=== PATIENT | male | born 1965 | race Caucasian/White ===

== ENCOUNTER 2023-02-05 09:00 | Outpatient (AMB) | payer OTHER, SELFPAY ==
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
[2023-02-05 09:08] VITALS: BP 110/80; PULSE 117; O2SAT 96; BMI 20.9
== END 2023-02-05 10:09 | disposition home or self-care (01) ==
LOC: HO.HMGH 09:00
PROVIDERS: PCP Internal Medicine; Visit Provider Internal Medicine
DX: Z00.00 Encounter for general adult medical examination without abnormal findings (principal); J44.9 Chronic obstructive pulmonary disease, unspecified; F41.9 Anxiety disorder, unspecified; R63.4 Abnormal weight loss; R63.0 Anorexia; R10.13 Epigastric pain; M25.50 Pain in unspecified joint; G89.29 Other chronic pain; F10.10 Alcohol abuse, uncomplicated; G47.00 Insomnia, unspecified; F32.89 Other specified depressive episodes; Z12.11 Encounter for screening for malignant neoplasm of colon
CPT/HCPCS: 99396

== ENCOUNTER 2023-02-05 10:15 | Outpatient (REF) | payer OTHER, SELFPAY ==
--- NOTE | ~2023-02-05 | XR_ITS ---
EXAMINATION: XR HIP, RIGHT XR HIP, LEFT XR KNEE, RIGHT XR TIBIA/FIBULA, RIGHT XR ELBOW, LEFT XR ELBOW, RIGHT XR WRIST, LEFT XR WRIST, RIGHT CLINICAL INFORMATION: Pain. History of tibial tendon repair right leg in 1997. COMPARISON: 07/19/2019 right lower leg, right hip 04/30/2019, left hip 03/19/2017, right knee of 01/28/2012. TECHNIQUE: 2 views of each hip. 4 view right knee. AP and lateral right tibia and fibula. 3 view each elbow, and 3 views of each wrist. FINDINGS: LEFT HIP: 2 views of the left hip do not demonstrate any evidence of acute fracture or dislocation. Joint spaces are maintained. There is some mild collar spurring present. No abnormal lytic or sclerotic lesions are seen involving the femoral head. RIGHT HIP: 2 views of the right hip do not demonstrate any evidence of acute fracture or dislocation. Right hip joint spaces are maintained. Mild spurring is seen as well as calcification of the labrum. No abnormal lytic or sclerotic lesion about the femoral head. RIGHT KNEE: There is no evidence of acute fracture or dislocation of the right knee. Right knee joint spaces are maintained. Bony density about the medial femoral condyle is present consistent with previous medial collateral ligament injury. No knee effusion is appreciated. RIGHT TIBIA AND FIBULA: There is no evidence of acute fracture or dislocation of the right tibia or fibula. No destructive bony lesions identified. There is again noted to be a juxtacortical sclerotic bony density about the anterior distal aspect of the tibia with some overlying soft tissue prominence which has been seen dating back to study of 03/12/2011. This has the appearance of possible osteochondroma. This could also be related to posttraumatic calcification. There is again noted be a stable sclerotic lesion seen involving the calcaneus. LEFT ELBOW: There is no evidence of acute fracture or dislocation of the left elbow. No left elbow effusion is appreciated. There is bony density seen about the coronoid process which is likely degenerative in nature. Joint spaces are maintained. Small linear calcification about the dorsal aspect of the olecranon which could possibly represent calcification adjacent to the triceps tendon. There is a squared-off density with linear margins overlying the lateral epicondyle but which likely represent artifact from overlying external material rather than related to calcific epicondylitis. LEFT WRIST: There is no evidence of acute fracture or dislocation of the left wrist. Left wrist joint spaces are maintained. Mild degenerative change about the 1st carpometacarpal joint is present. No destructive bony lesions. RIGHT ELBOW: There is no evidence of acute fracture or dislocation of the right elbow. Joint spaces are maintained. There are some calcifications about the dorsal aspect of the olecranon within the soft tissues. No elbow effusion is seen. RIGHT WRIST: There is no evidence of acute fracture or dislocation of the right wrist. Right wrist joint spaces are maintained. There is minor spurring seen about the ulnar styloid. Deformity from previous healed fracture seen involving the 4th and 5th metacarpals. XR/XR tibia fibula RT 2V IMPRESSION: No significant abnormality of the right or left hip. No significant right knee abnormality appreciated. Evidence for old medial collateral ligament injury. Stable sclerotic juxtacortical lesion about the distal right tibia with the appearance of an osteochondroma. No significant bony abnormalities of the wrists or right elbow.
[2023-02-05 11:11] LABS: Basophils Percent Auto 0.6 % (0-2); Eosinophils Percent Auto 0.6 % (0-4); Hematocrit 41.7 % (42.0-52.0); Hemoglobin 14.4 g/dl (14.0-18.0); Imm Gran Abs Auto 0.01 X10*3/uL (0.00-0.03); Imm Gran Pct Auto 0.2 % (0.0-0.4); Lymphocytes Percent Auto 21.4 % (20-40); MANUAL DIFF FLAG SCAN; Mean Corpuscular HGB Conc 34.5 g/dl (31.0-36.0); Mean Corpuscular Hemoglobin 32.5 pg (27.0-33.0); Mean Corpuscular Volume 94.1 fL (80.0-98.0); Monocytes Absolute Auto 0.6 X10*3/uL (0.1-1.2); Monocytes Percent Auto 13.4 % (2-11); Neutrophils Percent Auto 63.8 % (45-73); PLT CLUMP 1; Red Blood Count 4.43 X10*6/uL (4.60-5.80); SCAN SMEAR FLAG 1
[2023-02-05 11:13] LABS: White Blood Count 4.8 X10*3/uL (4.8-10.8)
[2023-02-05 11:21] LABS: Appearance Urine Cloudy; Color Urine Dark Yellow; Glucose Urine UA Negative (Negative); Leukocyte Esterase Urine Small (1+) (Negative); Nitrite Urine Positive (Negative); Specific Gravity - Urine >= 1.030 (1.005-1.025); UMIC TRIGGER UACC YES; Urine Blood Negative (Negative); Urine Ketones 15 mg/dL (Negative); Urine Protein 100 (2+) mg/dL (Neg-Trace)
[2023-02-05 11:35] LABS: Bacteria Urine None Seen (None Seen); RBC Urine 0-2 /HPF (0-2); UACC Culture Trigger YES; WBC Urine 0-5 /HPF (0-5)
[2023-02-05 11:49] LABS: Erythrocyte Sedimentation Rate 6 MM/HR (0-15)
[2023-02-05 11:53] LABS: Platelet Count 126 X10*3/uL (160-400)
[2023-02-05 11:54] LABS: SLIDE REVIEW VERIFIED
[2023-02-05 12:50] LABS: Alanine Aminotransferase 35 U/L (0-40); Albumin Level 4.5 g/dL (3.5-5.0); Alkaline Phosphatase 93 U/L (39-117); Anion Gap 18 (12-20); Aspartate Amino Transferase 63 U/L (5-37); Bilirubin Total 1.3 mg/dL (0.0-1.0); Blood Urea Nitrogen 6 mg/dL (9-16); C Reactive Protein 0.44 mg/dL (< or = 0.50); Calcium 9.8 mg/dL (8.4-10.2); Carbon Dioxide 23 mmol/L (22-29); Chloride 100 mmol/L (96-108); Cholesterol 163 mg/dL; Estimated Glomerular Filt Rate > 60; Glucose Fasting 93 mg/dL (60-99); HDL Cholesterol 90 mg/dL; LDL Cholesterol Calculated 61 mg/dl; Lipase 26 U/L (8-78); Sodium 137 mmol/L (135-145); Total Protein 7.8 g/dL (6.5-8.0); Triglycerides 62 mg/dL
[2023-02-05 13:06] LABS: Rheumatoid Factor < 13.0 IU/mL (<15.0)
[2023-02-05 13:22] LABS: Folate 15.5 ng/mL (> or = 4.0); Vitamin B12 292 pg/mL (200-900); Vitamin D 25-OH Total 9.9 ng/mL (>30)
[2023-02-08 07:34] LABS: Lyme Abs Screen <0.90 index
[2023-02-12 13:28] LABS: Anti Nuclear Antibody Screen POSITIVE (NEGATIVE); Anti Nuclear Antibody Titer 1:40 titer
== END 2023-02-05 10:16 | disposition home or self-care (01) ==
LOC: HO.LAB 10:15
PROVIDERS: PCP Internal Medicine; Visit Provider Internal Medicine
DX: Z00.00 Encounter for general adult medical examination without abnormal findings (principal); Z12.5 Encounter for screening for malignant neoplasm of prostate; R10.13 Epigastric pain; E78.00 Pure hypercholesterolemia, unspecified; J44.9 Chronic obstructive pulmonary disease, unspecified; K21.9 Gastro-esophageal reflux disease without esophagitis; R42 Dizziness and giddiness; R63.0 Anorexia; R63.4 Abnormal weight loss; M25.50 Pain in unspecified joint; E53.8 Deficiency of other specified B group vitamins; E55.9 Vitamin D deficiency, unspecified; G89.29 Other chronic pain
CPT/HCPCS: 36415; 73080; 73110; 73502; 73564; 73590; 80053; 80061; 81001; 82306; 82607; 82746; 83690; 84153; 84443; 85025; 85652; 86038; 86039; 86140; 86431; 86617; 86618; 87086

== ENCOUNTER 2023-05-20 13:15 | Outpatient (AMB) | payer OTHER, SELFPAY ==
--- NOTE | 2023-05-20 13:19 | AM.OFFVISNUR ---
Intake Intake Visit Reasons: PPD Allergies aspirin [ASPIRIN] Allergy (Unknown, Verified 05/20/23 06:07) HIVES levofloxacin [Levaquin] Allergy (Unknown, Verified 05/20/23 06:07) Unknown naproxen Allergy (Unknown, Verified 05/20/23 06:07) Unknown penicillin V Allergy (Unknown, Verified 05/20/23 06:07) Unknown Penicillins [PENICILLINS] Allergy (Unknown, Verified 05/20/23 06:07) HIVES strawberry [STRAWBERRY] Allergy (Unknown, Verified 05/20/23 06:07) SHORTNESS OF BREATH CHOCOLATE Allergy (Unknown, Uncoded 05/20/23 06:07) SHORTNESS OF BREATH From ALEVE Allergy (Unknown, Uncoded 05/20/23 06:07) HIVES From NOVOCAIN Allergy (Unknown, Uncoded 05/20/23 06:07) SWELLING novacaine Allergy (Unknown, Uncoded 05/20/23 06:07) Unknown Office Meds tuberculin PPD Performing Provider: Manjeet Espana MD Administered by: Brittnee Rosen RN on 05/20/23 13:28 Dose Route Admin Location Lot Number Expiration Date NDC House Steward/Stewardess 0.1 mL intradermal left forearm [id number] 07/22/26 43577-354-70 [employer] Coding Diagnoses Assessment & Plan Assessment & Plan Orders: Orders AMB PPD Planted Today Z11.1 - Encounter for screening for respiratory tuberculosis
== END 2023-05-20 13:29 | disposition home or self-care (01) ==
PROVIDERS: PCP Internal Medicine; Visit Provider Internal Medicine
DX: Z11.1 Encounter for screening for respiratory tuberculosis (principal)
CPT/HCPCS: 86580

== ENCOUNTER 2023-06-02 09:46 | Outpatient (AMB) | payer OTHER, SELFPAY ==
--- NOTE | 2023-06-02 09:47 | AM.OFFVISNUR ---
Intake Intake Visit Reasons: TB implant Allergies aspirin [ASPIRIN] Allergy (Unknown, Verified 05/20/23 06:07) HIVES levofloxacin [Levaquin] Allergy (Unknown, Verified 05/20/23 06:07) Unknown naproxen Allergy (Unknown, Verified 05/20/23 06:07) Unknown penicillin V Allergy (Unknown, Verified 05/20/23 06:07) Unknown Penicillins [PENICILLINS] Allergy (Unknown, Verified 05/20/23 06:07) HIVES strawberry [STRAWBERRY] Allergy (Unknown, Verified 05/20/23 06:07) SHORTNESS OF BREATH CHOCOLATE Allergy (Unknown, Uncoded 05/20/23 06:07) SHORTNESS OF BREATH From ALEVE Allergy (Unknown, Uncoded 05/20/23 06:07) HIVES From NOVOCAIN Allergy (Unknown, Uncoded 05/20/23 06:07) SWELLING novacaine Allergy (Unknown, Uncoded 05/20/23 06:07) Unknown Office Meds tuberculin PPD 5 tub. unit/0.1 mL intradermal injection solution Performing Provider: Manjeet Espana MD [facility] [place] [facility] Administered by: Sonja Moreno RN on 06/02/23 09:55 Dose Route Admin Location Dispensed Lot Number Expiration Date NDC Doll Repairer 0.1 mL intradermal 0.1 mL [id number] 07/21/26 03702-737-78 [employer] Coding Assessment & Plan Assessment & Plan Orders: Orders AMB PPD Planted Today Z11.1 - Encounter for screening for respiratory tuberculosis
== END 2023-06-02 09:55 | disposition home or self-care (01) ==
PROVIDERS: PCP Internal Medicine; Visit Provider Internal Medicine
DX: Z11.1 Encounter for screening for respiratory tuberculosis (principal)
CPT/HCPCS: 86580

== ENCOUNTER 2024-06-13 19:55 | Emergency (ER) | payer OTHER, SELFPAY ==
[2024-06-13 20:02] VITALS: BP 138/88; PULSE 72; O2SAT 99
[2024-06-13 20:05] VITALS: BP 102/69; PULSE 90; RESP 16; TEMP 37; O2SAT 100; BMI 20.6
[2024-06-13 20:29] LABS: Basophils Percent Auto 0.7 % (0-2); Eosinophils Absolute Auto 0.1 X10*3/uL (0.0-0.4); Eosinophils Percent Auto 1.2 % (0-4); Hematocrit 39.3 % (42.0-52.0); Hemoglobin 13.6 g/dl (14.0-18.0); Imm Gran Abs Auto 0.02 X10*3/uL (0.00-0.03); Imm Gran Pct Auto 0.4 % (0.0-0.4); Lymphocytes Absolute Auto 2.5 X10*3/uL (1.2-4.9); Lymphocytes Percent Auto 45.3 % (20-40); MANUAL DIFF FLAG NO; Mean Corpuscular HGB Conc 34.6 g/dl (31.0-36.0); Mean Corpuscular Hemoglobin 33.7 pg (27.0-33.0); Mean Corpuscular Volume 97.3 fL (80.0-98.0); Mean Platelet Volume 8.6 fL (9.4-12.4); Monocytes Absolute Auto 0.7 X10*3/uL (0.1-1.2); Monocytes Percent Auto 13.2 % (2-11); Neutrophils Absolute Auto 2.2 x10*3/uL (2.0-8.3); Neutrophils Percent Auto 39.2 % (45-73); Platelet Count 167 X10*3/uL (160-400); Red Blood Count 4.04 X10*6/uL (4.60-5.80); Red Cell Distribution Width 13.2 % (11.0-16.0); White Blood Count 5.6 X10*3/uL (4.8-10.8)
[2024-06-13 20:42] LABS: Alanine Aminotransferase 39 U/L (0-40); Albumin Level 4.5 g/dL (3.5-5.0); Alkaline Phosphatase 88 U/L (39-117); Anion Gap 14 (12-20); Aspartate Amino Transferase 70 U/L (5-37); Bilirubin Total 0.3 mg/dL (0.0-1.0); Blood Urea Nitrogen 5 mg/dL (9-16); Calcium 9.4 mg/dL (8.4-10.2); Carbon Dioxide 25 mmol/L (22-29); Chloride 110 mmol/L (96-108); Creatinine Clr Calc Pharmacy 100.1; Estimated Glomerular Filt Rate > 60; Ethanol 435 mg/dL; Glucose Random 94 mg/dL (60-115); Potassium 3.4 mmol/L (3.3-5.1); Sodium 146 mmol/L (135-145)
[2024-06-13 21:29] LABS: Appearance Urine Clear; Color Urine Yellow; Glucose Urine UA Negative (Negative); Leukocyte Esterase Urine Negative (Negative); Nitrite Urine Negative (Negative); Specific Gravity - Urine <= 1.005 (1.005-1.025); Urine Blood Negative (Negative); Urine Ketones Negative (Negative); Urine Protein Negative (Neg-Trace)
[2024-06-13 21:38] LABS: Amphetamine Screen Urine Not Detected (Not Detect); Barbiturates, Urine Not Detected (Not Detect); Benzodiazepines Screen Urine Not Detected (Not Detect); Buprenorphine Scr Not Detected (Not Detect); Cannabinoid Screen Urine POSITIVE (Not Detect); Cocaine Screen Urine Not Detected (Not Detect); Fentanyl, urine Not Detected (Not Detect); Methadone Screen, Urine Not Detected (Not Detect); Opiate Screen Urine Not Detected (Not Detect); Oxycodone Screen Urine Not Detected (Not Detect); Phencyclidine Screen Urine Not Detected (Not Detect)
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
--- NOTE | 2024-06-14 00:19 | PC.NURSE ---
Took report from off-going RN at 2300 hrs. Pt is a 59 y/o male, brought in by EMS on 06/13 for evaluation of ETOH. Pt reports drinking 4-24oz natty ice , c/o nausea, bilateral leg numbness with marijuana use. Denies SI and HI. BAL @ 2023 hrs was 435. Pt verbalizes interest in going to detox. Arousable with verbal stimuli. Is calm, cooperative, and appropriate with staff. Disposition is pending. Will continue to monitor for any changes.
[2024-06-14 00:21] VITALS: BP 96/60; PULSE 75; RESP 16; O2SAT 98
--- NOTE | 2024-06-14 02:17 | PC.NURSE ---
Pt has been sleeping most of the shift, but is arousable with verbal stimuli. Pt is calm and cooperative, appropriate with staff. Verbalizes needs/desires appropriately. Disposition is pending. Will continue to monitor for any changes.
--- NOTE | 2024-06-14 05:43 | PC.NURSE ---
Pt awake and alert, asked for and given some water.
[2024-06-14 06:17] VITALS: BP 90/61; PULSE 78; RESP 18; TEMP 36.8; O2SAT 98
--- NOTE | 2024-06-14 09:40 | PC.NURSE ---
care team meeting with patient
[2024-06-14 10:41] VITALS: BP 117/60; PULSE 67; RESP 14; TEMP 36.6; O2SAT 98
[2024-06-14 11:51] VITALS: BP 117/60; PULSE 67; RESP 14; TEMP 36.6; O2SAT 98
--- NOTE | 2024-06-14 12:03 | MHC.RECOVRN ---
Met with pt in [id number] after cleared by CARE Team. Pt had presented to the ED after being found outside by PD and alcohol use. Pt initially had requested respite but after speaking with CARE Team plan was to dc home. Pt laying in bed, asleep, easily wakes to voice. Pt reports alcohol use, 3 25 ounce beers daily (8% alcohol) as well as 2 nips. Pt reports he has always drank this amount of alcohol. Reports when he does not drink he feels withdrawal symptoms including tremors. Discussed goals, pts goal is to reduce the amount of alcohol he consumes, is not interested in abstinence. Pt reports he has received Vivitrol in the past, is not interested in restarting medications for AUD. Educated pt on other recovery resources and supports, including recovery coaching, IOP, AA, etc. When asked if pt is interested in referrals currently, pt states I'm only interested in going home. Provided pt with written resources as well as t/w contact information if needed. Denies questions or concerns for t/w.
--- NOTE | 2024-06-14 13:39 | MHC.CARE ---
Pt was seen by CARE team and referred to hospital recovery team. ED provider was consulted and in agreement with disposition for referral to recovery team.
== END 2024-06-14 11:51 | disposition home or self-care (01) ==
PROVIDERS: Internal Medicine; Emergency Provider Emergency Medicine Emergency Medical Services
DX: F10.229 Alcohol dependence with intoxication, unspecified (principal); Y90.8 Blood alcohol level of 240 mg/100 ml or more; R11.2 Nausea with vomiting, unspecified; F17.210 Nicotine dependence, cigarettes, uncomplicated; Z79.899 Other long term (current) drug therapy
CPT/HCPCS: 36415; 80053; 80307; 81003; 85025; 99284; S9485

== ENCOUNTER 2024-10-22 12:44 | Outpatient (AMB) | payer OTHER, SELFPAY ==
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
[2024-10-22 12:54] VITALS: BP 110/64; PULSE 82; TEMP 36.5; O2SAT 97; BMI 21.3
== END 2024-10-22 13:53 | disposition home or self-care (01) ==
DX: J44.9 Chronic obstructive pulmonary disease, unspecified (principal); M54.41 Lumbago with sciatica, right side; R29.898 Other symptoms and signs involving the musculoskeletal system; M25.551 Pain in right hip; M25.552 Pain in left hip; G47.00 Insomnia, unspecified; F41.9 Anxiety disorder, unspecified; F32.89 Other specified depressive episodes

== ENCOUNTER → 2024-10-22 12:44 | Outpatient (BNVA) | payer OTHER, SELFPAY | DX: M54.41 Lumbago with sciatica, right side (principal); R29.898 Other symptoms and signs involving the musculoskeletal system; M25.551 Pain in right hip; M25.552 Pain in left hip; J44.9 Chronic obstructive pulmonary disease, unspecified; G47.00 Insomnia, unspecified; F41.9 Anxiety disorder, unspecified; F32.89 Other specified depressive episodes | CPT/HCPCS: 96127; 99212 ==

== ENCOUNTER 2024-11-15 14:49 | Outpatient (REF) | payer OTHER, SELFPAY ==
[2024-11-15 15:13] LABS: MANUAL DIFF FLAG NO
[2024-11-15 16:05] LABS: Appearance Urine Hazy; Color Urine Yellow; Glucose Urine UA Negative (Negative); Leukocyte Esterase Urine Negative (Negative); Nitrite Urine Negative (Negative); PH 6.5 (5.0-9.0); Urine Blood Negative (Negative); Urine Ketones Trace mg/dL (Negative); Urine Protein Negative (Neg-Trace)
[2024-11-15 16:20] LABS: Basophils Percent Auto 0.5 % (0-2); Eosinophils Percent Auto 0.5 % (0-4); Hematocrit 39.1 % (42.0-52.0); Hemoglobin 13.4 g/dl (14.0-18.0); Imm Gran Abs Auto 0.03 X10*3/uL (0.00-0.03); Imm Gran Pct Auto 0.4 % (0.0-0.4); Lymphocytes Absolute Auto 1.7 X10*3/uL (1.2-4.9); Lymphocytes Percent Auto 22.7 % (20-40); Mean Corpuscular HGB Conc 34.3 g/dl (31.0-36.0); Mean Corpuscular Volume 96.3 fL (80.0-98.0); Mean Platelet Volume 9.4 fL (9.4-12.4); Monocytes Absolute Auto 0.9 X10*3/uL (0.1-1.2); Monocytes Percent Auto 11.5 % (2-11); Neutrophils Absolute Auto 4.8 x10*3/uL (2.0-8.3); Neutrophils Percent Auto 64.4 % (45-73); Platelet Count 216 X10*3/uL (160-400); Red Blood Count 4.06 X10*6/uL (4.60-5.80); Red Cell Distribution Width 13.6 % (11.0-16.0); White Blood Count 7.4 X10*3/uL (4.8-10.8)
[2024-11-15 17:16] LABS: Alanine Aminotransferase 14 U/L (0-40); Albumin Level 4.2 g/dL (3.5-5.0); Anion Gap 13 (12-20); Aspartate Amino Transferase 27 U/L (5-37); Bilirubin Total 0.6 mg/dL (0.0-1.0); Blood Urea Nitrogen 8 mg/dL (9-16); Calcium 9.6 mg/dL (8.4-10.2); Carbon Dioxide 26 mmol/L (22-29); Chloride 104 mmol/L (96-108); Cholesterol 150 mg/dL (<200); Estimated Glomerular Filt Rate > 60; Glucose Fasting 94 mg/dL (60-99); HDL Cholesterol 84 mg/dL (>40); LDL Cholesterol Calculated 59 mg/dL (<100); Potassium 3.8 mmol/L (3.3-5.1); Sodium 139 mmol/L (135-145); Total Protein 8.1 g/dL (6.5-8.0); Triglycerides 36 mg/dL (<150)
[2024-11-15 17:32] LABS: TSH reflex Free T4 1.29 uIU/mL (0.32-4.0); Vitamin D 25-OH Total 11.5 ng/mL (>30)
[2024-11-15 17:56] LABS: Alkaline Phosphatase 76 U/L (39-117)
== END 2024-11-15 14:50 | disposition home or self-care (01) ==
LOC: HO.LAB 14:49
PROVIDERS: PCP Internal Medicine
DX: Z00.00 Encounter for general adult medical examination without abnormal findings (principal); R29.898 Other symptoms and signs involving the musculoskeletal system
CPT/HCPCS: 36415; 80053; 80061; 81003; 82306; 84443; 85025

== ENCOUNTER 2024-12-24 08:34 | Outpatient (AMB) | payer OTHER, SELFPAY ==
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
[2024-12-24 08:54] VITALS: BP 114/72; PULSE 103; RESP 18; TEMP 37.3; O2SAT 94; BMI 20.7
== END 2024-12-24 09:39 | disposition home or self-care (01) ==
LOC: HO.HMCH 08:34
DX: Z00.00 Encounter for general adult medical examination without abnormal findings (principal); J44.9 Chronic obstructive pulmonary disease, unspecified; G47.00 Insomnia, unspecified; F41.9 Anxiety disorder, unspecified; F10.10 Alcohol abuse, uncomplicated; K21.9 Gastro-esophageal reflux disease without esophagitis; M25.50 Pain in unspecified joint; G89.29 Other chronic pain; E55.9 Vitamin D deficiency, unspecified; J32.9 Chronic sinusitis, unspecified

== ENCOUNTER → 2024-12-24 08:34 | Outpatient (BNVA) | payer OTHER, SELFPAY | DX: Z00.00 Encounter for general adult medical examination without abnormal findings (principal); J44.9 Chronic obstructive pulmonary disease, unspecified; G47.00 Insomnia, unspecified; F41.9 Anxiety disorder, unspecified; F10.10 Alcohol abuse, uncomplicated; K21.9 Gastro-esophageal reflux disease without esophagitis; M25.50 Pain in unspecified joint; G89.29 Other chronic pain; E55.9 Vitamin D deficiency, unspecified; J32.9 Chronic sinusitis, unspecified; R63.0 Anorexia; D64.9 Anemia, unspecified; F17.210 Nicotine dependence, cigarettes, uncomplicated; Z68.20 Body mass index [BMI] 20.0-20.9, adult | CPT/HCPCS: 99396 ==

== ENCOUNTER 2025-04-07 08:41 | Outpatient (AMB) | payer OTHER, SELFPAY ==
[2025-04-07 08:43] VITALS: BP 98/70; PULSE 105; TEMP 35.7; O2SAT 96; BMI 19.3
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
== END 2025-04-07 09:24 | disposition home or self-care (01) ==
LOC: HO.HMCH 08:41
DX: J44.9 Chronic obstructive pulmonary disease, unspecified (principal); F10.10 Alcohol abuse, uncomplicated; F32.89 Other specified depressive episodes; F41.9 Anxiety disorder, unspecified; E55.9 Vitamin D deficiency, unspecified; K21.9 Gastro-esophageal reflux disease without esophagitis; D64.9 Anemia, unspecified; M25.50 Pain in unspecified joint; G89.29 Other chronic pain; G47.00 Insomnia, unspecified; R63.0 Anorexia

== ENCOUNTER → 2025-04-07 08:41 | Outpatient (BNVA) | payer OTHER, SELFPAY | DX: F10.10 Alcohol abuse, uncomplicated (principal); F32.89 Other specified depressive episodes; F41.9 Anxiety disorder, unspecified; E55.9 Vitamin D deficiency, unspecified; K21.9 Gastro-esophageal reflux disease without esophagitis; D64.9 Anemia, unspecified; M25.50 Pain in unspecified joint; G89.29 Other chronic pain; J44.9 Chronic obstructive pulmonary disease, unspecified; G47.00 Insomnia, unspecified; R63.0 Anorexia; Z79.899 Other long term (current) drug therapy | CPT/HCPCS: 99212 ==

== ENCOUNTER 2025-04-13 10:49 | Outpatient (REF) | payer OTHER, SELFPAY ==
--- NOTE | ~2025-04-13 | XR_ITS ---
EXAMINATION: XR LUMBOSACRAL SPINE CLINICAL INFORMATION: R29.898 - Other symptoms and signs involving the musculoskeletal system COMPARISON: June 25, 2019. TECHNIQUE: AP and lateral views. FINDINGS: Endplate sclerosis decreased intervertebral disc height and marginal osteophyte formation at L5-S1. Multilevel anterior marginal osteophyte formation. Endplate sclerosis at L3-4 and L4-5. No acute cortical disruption. Grade 1 retrolisthesis L5-S1. No lytic or blastic lesions. Vascular calcifications, abdominal aorta. XR/XR lumbar spine 2-3V IMPRESSION: Moderate to severe spondylosis L5-S1, worsened since prior examination. Multilevel spondylosis. Atherosclerosis disease. Electronically signed by: Martin Weiss MD 04/13/2025 11:23 AM EDT
[2025-04-13 11:04] LABS: MANUAL DIFF FLAG NO
[2025-04-13 11:34] LABS: Hematocrit 39.4 % (42.0-52.0); Hemoglobin 13.5 g/dl (14.0-18.0); Imm Gran Abs Auto 0.01 X10*3/uL (0.00-0.03); Imm Gran Pct Auto 0.2 % (0.0-0.4); Lymphocytes Absolute Auto 1.3 X10*3/uL (1.2-4.9); Mean Corpuscular HGB Conc 34.3 g/dl (31.0-36.0); Mean Corpuscular Hemoglobin 33.1 pg (27.0-33.0); Mean Corpuscular Volume 96.6 fL (80.0-98.0); NRBC Abs Auto 0.000 X10*3/uL (0.0-0.012); NRBC Pct Auto 0.0 /100WBC (0.0-0.2); Platelet Count 161 X10*3/uL (160-400); Red Blood Count 4.08 X10*6/uL (4.60-5.80); White Blood Count 4.5 X10*3/uL (4.8-10.8)
[2025-04-13 12:16] LABS: Alanine Aminotransferase 27 U/L (0-40); Albumin Level 4.2 g/dL (3.5-5.0); Alkaline Phosphatase 80 U/L (39-117); Anion Gap 10 (12-20); Aspartate Amino Transferase 47 U/L (5-37); Blood Urea Nitrogen 5 mg/dL (9-16); Calcium 9.1 mg/dL (8.4-10.2); Carbon Dioxide 28 mmol/L (22-29); Chloride 108 mmol/L (96-108); Cholesterol 136 mg/dL (<200); Estimated Glomerular Filt Rate > 60; HDL Cholesterol 73 mg/dL (>40); Potassium 4.0 mmol/L (3.3-5.1); Sodium 142 mmol/L (135-145); Total Protein 7.3 g/dL (6.5-8.0); Triglycerides 37 mg/dL (<150)
[2025-04-13 12:34] LABS: Folate 10.6 ng/mL (> or = 4.0); Vitamin B12 267 pg/mL (200-900)
[2025-04-13 12:45] LABS: Appearance Urine Clear; Glucose Urine UA Negative (Negative); PH 7.0 (5.0-9.0); Specific Gravity - Urine 1.015 (1.005-1.025)
== END 2025-04-13 10:50 | disposition home or self-care (01) ==
LOC: HO.LAB 10:49
DX: K21.9 Gastro-esophageal reflux disease without esophagitis (principal); R63.0 Anorexia; F10.10 Alcohol abuse, uncomplicated; D64.9 Anemia, unspecified; E55.9 Vitamin D deficiency, unspecified; F41.9 Anxiety disorder, unspecified; G47.00 Insomnia, unspecified; R29.898 Other symptoms and signs involving the musculoskeletal system
CPT/HCPCS: 36415; 72100; 80053; 80061; 81003; 82306; 82607; 82746; 84207; 84425; 84443; 85025

== ENCOUNTER → 2025-04-13 11:06 | Outpatient (BNV) | payer OTHER, SELFPAY | PROVIDERS: Visit Provider Radiology Diagnostic Radiology | DX: M47.817 Spondylosis without myelopathy or radiculopathy, lumbosacral region (principal); I70.90 Unspecified atherosclerosis | CPT/HCPCS: 72100 ==

== ENCOUNTER 2025-07-18 10:48 | Outpatient (REF) | payer OTHER, SELFPAY ==
[2025-07-21 17:48] LABS: TS Negative Control Passed; TS Panel A 0; TS Panel B 0; TS Positive Control Passed; TSpotTB Negative (Negative)
== END 2025-07-18 10:49 | disposition home or self-care (01) ==
LOC: HO.LAB 10:48
DX: M51.361 Other intervertebral disc degeneration, lumbar region with lower extremity pain only (principal); M47.817 Spondylosis without myelopathy or radiculopathy, lumbosacral region; M43.16 Spondylolisthesis, lumbar region; M79.641 Pain in right hand; G89.29 Other chronic pain; Z11.1 Encounter for screening for respiratory tuberculosis
CPT/HCPCS: 36415; 86481; 99202

== ENCOUNTER 2025-07-18 10:48 | Outpatient (AMB) | payer OTHER, SELFPAY ==
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
[2025-07-18 10:56] VITALS: BP 111/72; PULSE 89; O2SAT 96; BMI 20.7
== END 2025-07-18 11:32 | disposition home or self-care (01) ==
PROVIDERS: Visit Provider Nurse Practitioner Family
DX: M54.41 Lumbago with sciatica, right side (principal); M25.50 Pain in unspecified joint; G89.29 Other chronic pain; M51.369 Other intervertebral disc degeneration, lumbar region without mention of lumbar back pain or lower extremity pain; M47.817 Spondylosis without myelopathy or radiculopathy, lumbosacral region; M43.16 Spondylolisthesis, lumbar region
CPT/HCPCS: 99204

== ENCOUNTER 2025-08-05 08:44 | Outpatient (AMB) | payer OTHER, SELFPAY ==
[2025-08-05 09:01] VITALS: BP 92/46; PULSE 94; RESP 18; TEMP 36.3; O2SAT 96; BMI 20.1
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
== END 2025-08-05 10:11 | disposition home or self-care (01) ==
LOC: HO.HMCH 08:45
DX: J44.9 Chronic obstructive pulmonary disease, unspecified (principal); F10.10 Alcohol abuse, uncomplicated; F32.89 Other specified depressive episodes; F41.9 Anxiety disorder, unspecified; E55.9 Vitamin D deficiency, unspecified; K21.9 Gastro-esophageal reflux disease without esophagitis; D64.9 Anemia, unspecified; M25.50 Pain in unspecified joint; G89.29 Other chronic pain; G47.00 Insomnia, unspecified; R63.0 Anorexia

== ENCOUNTER → 2025-08-05 08:44 | Outpatient (BNVA) | payer OTHER, SELFPAY | DX: K21.9 Gastro-esophageal reflux disease without esophagitis (principal); J44.9 Chronic obstructive pulmonary disease, unspecified; F10.10 Alcohol abuse, uncomplicated; F32.89 Other specified depressive episodes; F41.9 Anxiety disorder, unspecified; E55.9 Vitamin D deficiency, unspecified; D64.9 Anemia, unspecified; M25.50 Pain in unspecified joint; G89.29 Other chronic pain; G47.00 Insomnia, unspecified; R63.0 Anorexia; F17.210 Nicotine dependence, cigarettes, uncomplicated | CPT/HCPCS: 99212 ==